=== PATIENT | male | born 1950 | race Caucasian/White ===

== ENCOUNTER 2018-04-07 06:50 | Day surgery (SDC) | payer OTHER ==
[2018-04-07] MEDS: Polymyxin B/Trimethoprim 10 ML Bottle EYERT SCH ×4 (07:18→09:17)
[2018-04-07] MEDS: Brimonidine 0.2% Ophth Soln 5 ML Bottle EYERT SCH ×4 (07:23→09:17)
[2018-04-07] MEDS: Phenylephrine 2.5% Ophth Soln 2 ML Bot EYERT SCH ×6 (07:28→08:55)
[2018-04-07] MEDS ORDERED: LORazepam 0.5 MG Tab PO SCH (07:29)
[2018-04-07] MEDS: Tropicamide 1% Ophth Soln 15 ML Bottle EYERT SCH ×4 (07:33→08:20)
--- NOTE | 2018-04-07 07:34 | PCM.PREANE ---
Preanesthetic Assessment - Anesthesia/Transfusion/Family Hx Anesthesia History: Prior Anesthesia Without Reaction Family History of Anesthesia Reaction: No Transfusion History: No Prior Transfusion(s) Intubation History: Unknown - Review of Systems Pulmonary: No Symptoms (History of asthma) Cardiovascular: No Symptoms (History of HTN) Gastrointestinal: No Symptoms Neurological: No Symptoms Other: Reports: None - Physical Assessment NPO Status Date: 04/06/18 NPO Status Time: 23:45 Pulse: 63 O2 Sat by Pulse Oximetry: 94 Respiratory Rate: 16 Blood Pressure: 134/69 Temperature: 36.8 C Vital Signs: Last Vital Signs Temp 36.8 C 04/07/18 07:05 Pulse 63 04/07/18 07:05 Resp 16 04/07/18 07:05 BP 134/69 04/07/18 07:05 Pulse Ox 94 L 04/07/18 07:05 Height: 1.78 m Weight: 90.718 kg ASA Class: 2 Mental Status: Alert & Oriented x3 Airway Class: Mallampati = 3 Dentition: Reports: Normal Dentition, Missing Tooth/Teeth, Caries Thyro-Mental Finger Breadths: 3 Mouth Opening Finger Breadths: 3 ROM/Head Extension: Full Lungs: Clear to Auscultation, Normal Respiratory Effort Cardiovascular: Regular Rate, Regular Rhythm, No Murmurs - Allergies Allergies/Adverse Reactions: Allergies Allergy/AdvReac Type Severity Reaction Status Date / Time losartan Allergy Cannot Verified 04/06/18 13:25 Remember lisinopril AdvReac Cough Verified 04/06/18 13:25 - Anesthesia Plan Pre-Op Medication Ordered: Beta Miguel Beta Miguel: Metoprolol Med Last Dose Date: 04/07/18 Med Last Dose Time: 04:00 - Acknowledgements Anesthesia Type Planned: MAC Pt an Appropriate Candidate for the Planned Anesthesia: Yes Alternatives and Risks of Anesthesia Discussed w Pt/Guardian: Yes Pt/Guardian Understands and Agrees with Anesthesia Plan: Yes PreAnesthesia Questionnaire HEENT History: Reports: Cataract Cardiovascular History: Reports: High Cholesterol, Hypertension Respiratory History: Reports: Asthma, Sleep Apnea Gastrointestinal History: Reports: Other (See Below) Other Gastrointestinal History: umbilical hernia Genitourinary History: Reports: BPH, Renal Calculus Other Genitourinary History: nephrolithiasis Psychiatric History: Reports: Depression Endocrine/Metabolic History: Reports: Obesity/BMI 30+ - Past Surgical History GI Surgical History: Reports: Cholecystectomy, Hernia, Abdominal - HOME MEDS Home Medications: Home Meds Albuterol Sulfate [Proventil Hfa] 6.7 gm IH Q6H 12/27/15 [History] Metoprolol Succinate [Toprol XL] 12.5 mg PO DAILY 12/27/15 [History] Tamsulosin [Flomax] 0.4 mg PO DAILY 12/27/15 [History] Triamterene 100 mg PO DAILY 12/27/15 [History] amLODIPine Besylate [Amlodipine Besylate] 10 mg PO DAILY 12/27/15 [History] Fluticasone Propionate [Flonase] 1 dose NASBOTH ASDIRECTED 03/02/18 [History] hydroCHLOROthiazide [Hydrochlorothiazide] 25 mg PO DAILY 03/02/18 [History] - CURRENT (IN HOUSE) MEDS Current Meds: Current Medications Brimonidine Tartrate (Alphagan 0.2% Ophth Soln) 0 ml EYERT ASDIRECTED BRYANT Stop: 04/07/18 18:00 Last Admin: 04/07/18 07:23 Dose: 1 drop Cefuroxime Sodium (Zinacef) 0 mg EYERT ASDIRECTED BRYANT Stop: 04/07/18 18:00 Lidocaine HCl (Xylocaine-Mpf 1%) 0 ml INJECT ASDIRECTED BRYANT Stop: 04/07/18 18:00 Phenylephrine HCl (Pete-Synephrine 2.5% Ophth Soln) 0 ml EYERT ASDIRECTED BRYANT Stop: 04/07/18 18:00 Pilocarpine HCl (Pilocar 4% Ophth Soln) 0 ml EYERT ASDIRECTED BRYANT Stop: 04/07/18 18:00 Polymyxin/Trimethoprim Sulfate (Polytrim Ophth Soln) 0 ml EYERT ASDIRECTED BRYANT Stop: 04/07/18 18:00 Last Admin: 04/07/18 07:18 Dose: 1 drop Tetracaine HCl (Tetracaine 0.5% Steri-Unit Phuong) 0 ml EYERT ASDIRECTED BRYANT Stop: 04/07/18 18:00 Tropicamide (Mydriacyl 1% Ophth Soln) 0 ml EYERT ASDIRECTED BRYANT Stop: 04/07/18 18:00
[2018-04-07] MEDS: Lidocaine 1% PF 2 ML SDV INJECT SCH ×2 (08:30→09:02)
[2018-04-07] MEDS: Cefuroxime 10 MG/ML SYRINGE EYERT SCH ×2 (08:30→09:16)
[2018-04-07] MEDS: Tetracaine HCl/PF 0.5% 4 ML Bottle EYERT SCH ×5 (08:30→09:03)
[2018-04-07] MEDS: Pilocarpine 4% Ophth Soln 15 ML Bot EYERT SCH ×2 (08:31→09:17)
--- NOTE | 2018-04-07 09:20 | PCM48HPAN ---
Post Anesthesia Note - EVALUATION WITHIN 48HRS OF ANESTHETIC Vital Signs in Normal Range: Yes Patient Participated in Evaluation: Yes Respiratory Function Stable: Yes Airway Patent: Yes Cardiovascular Function Stable: Yes Hydration Status Stable: Yes Pain Control Satisfactory: Yes Nausea and Vomiting Control Satisfactory: Yes Mental Status Recovered: Yes
[2018-04-07 09:36] VITALS: BP 139/80
== END 2018-04-07 09:29 | disposition home or self-care (01) ==
LOC: JD.SDS 06:50
PROVIDERS: ATTEND Ophthalmology
DX: H25.811 Combined forms of age-related cataract, right eye (principal); H10.31 Unspecified acute conjunctivitis, right eye; H52.31 Anisometropia; H02.834 Dermatochalasis of left upper eyelid; H02.831 Dermatochalasis of right upper eyelid; I10 Essential (primary) hypertension; E78.00 Pure hypercholesterolemia, unspecified; J45.909 Unspecified asthma, uncomplicated; N40.0 Benign prostatic hyperplasia without lower urinary tract symptoms; E66.9 Obesity, unspecified; Z68.28 Body mass index [BMI] 28.0-28.9, adult; Z88.8 Allergy status to other drugs, medicaments and biological substances; Z98.42 Cataract extraction status, left eye; Z96.1 Presence of intraocular lens; Z79.51 Long term (current) use of inhaled steroids; Z79.899 Other long term (current) drug therapy
CPT/HCPCS: 66984; A9270; C1780; J0697; J2001